=== PATIENT | male | born 1965 | race Caucasian/White ===

== ENCOUNTER 2022-01-21 08:03 | Outpatient (CLI) | payer OTHER, SELFPAY ==
--- NOTE | 2022-01-21 08:13 | MRI_ITS ---
STUDY: MRI RIGHT KNEE REASON FOR EXAM: Male, 56 years old. RT KNEE PAIN, MEDIAL PAIN TECHNIQUE: Standardized fat and water weighted pulse sequences were obtained in all 3 orthogonal planes. COMPARISON: None. FINDINGS: Small to moderate-sized horizontal and oblique undersurface tears are present at the periphery and middle one third aspect of the posterior horn of the medial meniscus. Normal body and anterior horn. There is diffuse, greater than 50% thickness articular cartilage loss of the medial femorotibial compartment. There is mild osteoarthritic spur formation of the medial knee compartment. Small benign intraosseous cyst noted in the midline of the distal femoral metaphysis. Normal medial collateral ligamentous complex (MCL). Normal distal semimembranosus, gracilis and semitendinosus tendons. Normal lateral meniscus. Normal hyaline cartilage of the lateral femorotibial compartment. Normal lateral femoral condyle and tibial plateau. Normal proximal tibiofibular articulation. Normal lateral collateral (fibular) ligament. Normal popliteus tendon. Normal biceps femoris tendon. Normal anterior cruciate ligament (ACL). Normal posterior cruciate ligament (PCL). Normal congruent patellofemoral articulation. There is diffuse, greater than 50% thickness articular cartilage loss of the patellofemoral compartment. Mild cortical spurring in the patellofemoral compartment. Normal medial and lateral patellar retinaculum. Normal quadriceps tendon. Normal patellar tendon. Normal Hoffa''s fat pad. Small joint effusion noted. The soft tissues are unremarkable. The otherwise visualized osseous structures are unremarkable. MRI/Lower Ext Joint Only (Routine) IMPRESSION: 1. Small to moderate-sized horizontal and oblique undersurface tears are present at the periphery and middle one third aspect of the posterior horn of the medial meniscus. Normal body and anterior horn. Electronically Signed: Scar Pepper MD at 10:47 EST Reading Location ID and State: [facility] / [place] , Service support ,
--- NOTE | 2022-01-21 08:47 | RAD_ITS ---
STUDY: X-RAY - ORBITS REASON FOR EXAM: Male, 56 years old. HX OF METAL - PRE MRI TECHNIQUE: 2 view(s) of the orbits were obtained. COMPARISON: None. FINDINGS: Normal bilateral orbits without a metallic orbital foreign body. Normal visualized facial bones. Normal paranasal sinuses. The soft tissue structures are unremarkable. RAD/Orbits for Foreign Body IMPRESSION: No demonstrated metallic orbital foreign body. The patient is cleared for an MRI examination. Electronically Signed: Scar Pepper MD at 9:21 EST ,
== END 2022-01-21 23:59 | disposition home or self-care (01) ==
LOC: MRI 08:07
PROVIDERS: PCP Family Medicine; Referring Provider Orthopaedic Surgery; Visit Provider Orthopaedic Surgery
DX: M25.561 Pain in right knee (principal); M17.11 Unilateral primary osteoarthritis, right knee
CPT/HCPCS: 70030; 73721

== ENCOUNTER 2022-02-26 09:04 | Day surgery (SDC) | payer OTHER, SELFPAY ==
--- NOTE | 2022-02-25 11:58 | EKG12_ITS ---
Test Reason : PREOP Blood Pressure : / mmHG Vent. Rate : 065 BPM Atrial Rate : 065 BPM P-R Int : 172 ms QRS Dur : 108 ms QT Int : 408 ms P-R-T Axes : 037 052 040 degrees QTc Int : 424 ms Normal sinus rhythm Normal ECG Confirmed by MIKAYLA DEAN, TUAN ([id number]), newspaper copy editor ORQUIDEA PERSON ([id number]) on 02/26/2022 11:24:55 AM Referred By: Mj Dhaliwal Confirmed By:TUAN DEGROOT MD
[2022-02-25 16:16] LABS: Absolute Neutrophil Count 4.8 X10^3/uL (2.0-7.7); Basophil# 0.05 X10^3/uL; Basophil% 0.6 % (0-1); Eosinophil# 0.25 X10^3/uL; Eosinophils% 3.1 % (0-5); Hematocrit 45.8 % (40-54); Hemoglobin 15.8 g/dL (13.0-16.5); Lymphocyte % 27.3 % (19-41); Mean Corp Hgb Conc 34.5 g/dL (32-36); Mean Corpuscular Hgb 29.9 pg (27.0-32.0); Mean Corpuscular Volume 86.6 fL (80-94); Mean Platelet Vol. 8.7 fl (6.2-12.0); Monocyte# 0.78 X10^3/uL; Monocyte% 9.7 % (0-10); NRBC Flagged by Analyzer 0 % (0-5); Neutrophil # 4.76 X10^3/uL (2.7-7.7); Neutrophil % 58.9 % (47-70); Platelet Count 250 K/mm3 (150-450); RBC Distribution Width CV 12.9 % (11.6-14.6); RBC Distribution Width SD 40.5 fl (35.1-43.9); Red Blood Count 5.29 M/mm3 (4.6-6.2); White Blood Count 8.1 K/mm3 (4.4-11.0)
[2022-02-25 16:36] LABS: Anion Gap 4 (5-15); BUN 14 mg/dL (7-18); BUN/Creat Ratio 14.3 RATIO (10-20); Calcium,Total 8.4 mg/dL (8.5-10.1); Chloride 106 mmol/L (98-107); Creatinine, Serum 0.98 mg/dL (0.70-1.30); EST Glomerular Filtration Rate 85 mL/min (>60); Est Glom Filt Rate - Afr Amer 102 mL/min (>60); Glucose 97 mg/dL (74-106); Potassium 3.8 mmol/L (3.5-5.1); Sodium Level 139 mmol/L (136-145)
[2022-02-26] VITALS (8 sets, daily range): BP systolic 106–140; BP diastolic 76–98; PULSE 50–57; RESP 16; TEMP 36.3–37.1; O2SAT 95–99
[2022-02-26] MEDS: Lactated Ringers 1,000 ML 15 ML IV ×2 (10:10→12:35)
[2022-02-26] MEDS: Cefazolin 2 GM in 0.9% Normal Saline 100 ML IV (10:30)
[2022-02-26] MEDS: Lidocaine 1% /Epi 1:100 (20ml) 20 ML Vial (10:53)
[2022-02-26] MEDS: Epinephrine (1 mg/ml) 1 MG/ML VIAL (10:53)
--- NOTE | 2022-02-26 11:53 | OP.PCM_ITS ---
Report of Operation Date of Procedure: 02/26/22 Pre-Operative Diagnosis: Internal derangement right knee Post-Operative Diagnosis: MMT, Grade 3 chondromalacia PF joint, Grade 3 and 4 chondromalacia MFC Surgery/Procedure Performed:: Diagnostic and operative arthroscopy with partial medial meniscectomy and chondroplasty of the PFJ and MFC Description of Surgical Findings:: Report of Operation Date of Procedure: 02/26/2022 Preoperative Diagnosis: Right knee, internal derangement Postoperative Diagnosis: Right knee, MMT, Grade 3 chondromalacia patellofemoral joint, Grade 3 and 4 chondromalacia medial femoral condyle Operation: Diagnostic and operative arthroscopy of the right knee with arthroscopic Surgeon: Dr Mj Dhaliwal DO Anesthesia: general Anesthesiologist: Parish Caputo M.D. Description of Procedure: With appropriate informed consent, the patient was taken to the operative suite. After induction of general and regional anesthesia and administration of the preoperative antibiotics, the well leg was fitted with MIGUEL A and SCDs and well padded. The right knee was placed into the arthroscopy leg jackson, prepped and draped sterilely. The standard arthroscopy portals were pre-injected with 0.5% Marcaine with epinephrine. A lateral portal was established. The diagnostic arthroscopy was begun. The patellofemoral joint revealed diffuse grade 3 chondromalacia of the patella and the trochlea. The medial compartment was entered and the medial portal was established. A probe was utilized to probe the medial meniscus. There was a macerated posterior horn medial meniscus tear and grade 3 and 4 chondromalacia of the inner part of the medial femoral condyle. ACL and PCL were probed and intact. The lateral compartment was entered. There was no pathology. Subsequently, a partial [ medial ] meniscectomy was performed using a combination of straight and angled basket punches. The meniscotome was then utilized to remove the fragments of cartilage and then to smooth the remainder of the meniscus to a firm and stable rim. A shaver was used to perform a chondroplasty on the [ PFJ and MFC ] to smooth the roughened surface cartilage and remove any delaminated cartilage. Thereafter, the arthroscopy instruments and fluid were removed. The portals were closed with interrupted sutures of 4-0 nylon followed by application of a sterile well-padded dressing and LUIS wrap. The patient was extubated and transferred to the PACU in stable and satisfactory condition. Mj Dhaliwal DO Surgeon: Mj Dhaliwal it business process architect: None Type of Anesthesia: General Anesthesiologist: Parish Caputo Admcharanjit VTE Documentation VTE Present on Admission: No VTE Mechan Device Prophylaxis: SCD's VTE Pharm Prophylaxis ordered?: No Reason prophylaxis not ordered:: Treatment Not Indicated
[2022-02-26] MEDS: HYDROcodone Bitartrate/Apap 5/325 Tablet PO (13:29)
== END 2022-02-26 23:59 | disposition home or self-care (01) ==
LOC: SDC 09:05 → AC 09:05
PROVIDERS: PCP Family Medicine; Referring Provider Orthopaedic Surgery; Visit Provider Orthopaedic Surgery
PROC: (CPT 29870; principal; 2022-02-26 10:10)
DX: S83.241A Other tear of medial meniscus, current injury, right knee, initial encounter (principal); M23.91 Unspecified internal derangement of right knee; M22.41 Chondromalacia patellae, right knee; X58.XXXA Exposure to other specified factors, initial encounter
CPT/HCPCS: 29881; 01400; 36415; 80048; 85025; 87426; 93005; C9803; J7120; J2405

== ENCOUNTER → 2022-07-30 | Outpatient (CLI) | payer OTHER, SELFPAY ==
--- NOTE | 2022-07-30 11:19 | MRI_ITS ---
STUDY: MRI RIGHT KNEE REASON FOR EXAM: Right medial knee pain for 16 months, surgery 02/26/2022. TECHNIQUE: Standardized fat and water weighted pulse sequences were obtained in all 3 orthogonal planes. COMPARISON: MRI images 01/21/2022. FINDINGS: There is a partial medial meniscectomy. There is interval development of a complex tear of the body of the medial meniscus, separate from the partial meniscectomy site (proton-density coronal images 16-18). There is mild peripheral subluxation of the medial meniscus. There is arthrosis of the medial femorotibial compartment with chondral thinning of the medial femoral condyle (T2 sagittal image 21). There is interval development of subchondral bone edema of the medial femoral condyle (T2 coronal images 18-22), a stress phenomenon. Normal medial collateral ligamentous complex (MCL). Normal distal semimembranosus, gracilis and semitendinosus tendons. Normal lateral meniscus. Normal hyaline cartilage of the lateral femorotibial compartment. Normal lateral femoral condyle and tibial plateau. Normal proximal tibiofibular articulation. Normal lateral collateral (fibular) ligament. Normal popliteus tendon. Normal biceps femoris tendon. Normal anterior cruciate ligament (ACL). Normal posterior cruciate ligament (PCL). Normal congruent patellofemoral articulation. There is arthrosis of the patellofemoral compartment with chondral thinning (T2 sagittal image 14). Normal medial and lateral patellar retinaculum. Normal visualized quadriceps tendon. There is mild distal patellar tendinosis (T2 sagittal images 11, 12). There is mild postoperative scarring in Hoffa''s fat pad. There is a small joint effusion. There is a thin medial patellar plica. There is mild prepatellar bursitis (T2 sagittal images 12-15). There is an enchondroma in the posterior aspect of the distal femoral metaphysis (T2 sagittal image 15) unchanged since the prior study measuring 1.6 cm in length. MRI/Lower Ext Joint Only (Routine) IMPRESSION: Partial medial meniscectomy with recurrent medial meniscal tear. Subchondral bone edema of the medial femoral condyle, a stress phenomenon. Arthrosis of the medial femorotibial patellofemoral compartments. Mild distal quadriceps tendinosis. Small joint effusion. Mild prepatellar bursitis. Small enchondroma in the distal femur. Electronically Signed: Sameer Tee MD at 12:35 EDT ,
== END | disposition home or self-care (01) ==
PROVIDERS: PCP Family Medicine; Referring Provider Orthopaedic Surgery; Visit Provider Orthopaedic Surgery
DX: M17.11 Unilateral primary osteoarthritis, right knee (principal); S83.241D Other tear of medial meniscus, current injury, right knee, subsequent encounter
CPT/HCPCS: 73721

== ENCOUNTER → 2022-11-03 | Outpatient (CLI) | payer OTHER, SELFPAY ==
--- NOTE | 2022-11-03 16:23 | CT_ITS ---
INDICATION: PRE OP EXAMINATION: CT BONE - CT Lower Extremity W/O Contrast Injection TECHNIQUE: Preoperative noncontrast [facility] protocol exam for surgical planning, with multiplanar images of the right knee hip and ankle. IV Contrast dosage and agent: None. COMPARISON: MRI right knee July 30, 2022. FINDINGS: SOFT TISSUES: Mild anterior thigh and knee subcutaneous soft tissue edema. No focal fluid collection or subcutaneous emphysema. Unremarkable muscular appearance. Small to moderate knee joint effusion without significant change from prior MRI. No radiopaque foreign body. BONES/JOINTS: No acute fracture or subluxation. Normal alignment. Prior left hip arthropathy. Mild right hip joint space narrowing and osteophyte formation. Knee tricompartment osteophyte formation with medial and patellofemoral compartment space narrowing. Mild tibiotalar osteophyte formation without gross effusion. No aggressive osteoblastic or destructive osseous lesion. . CT/Extremity Lower without Contra IMPRESSION: Osteoarthritis of right hip, knee, and ankle with persistent right knee joint effusion. Mild anterior thigh and knee subcutaneous soft tissue edema. Electronically Signed: Horacio Hsu MD at 7:10 EST Reading Location ID and State: [facility] / [place] Tel , Service support ,
== END | disposition home or self-care (01) ==
LOC: CT 16:20
PROVIDERS: PCP Family Medicine; Referring Provider Specialist; Visit Provider Specialist
DX: M21.161 Varus deformity, not elsewhere classified, right knee (principal); M17.11 Unilateral primary osteoarthritis, right knee; M16.11 Unilateral primary osteoarthritis, right hip; M25.471 Effusion, right ankle
CPT/HCPCS: 73700

== ENCOUNTER 2022-11-10 07:35 | Day surgery (SDC) | payer OTHER, SELFPAY ==
--- NOTE | 2022-10-22 19:20 | HP.PCM_ITS ---
History and Physical History and Physical [facility] Patient Name: Lit Nicholson : 1965 From:? SAMANTHA KITCHEN PA-C? DATE OF SURGERY:? 11/10/2022 SCHEDULED PROCEDURE:? Right partial knee replacement HISTORY OF PRESENT ILLNESS: Preoperative history and physical exam was performed on October 22, 2022.? This is a 57-year-old male who is been having ongoing pain for over one year.? Patient underwent a right knee arthroscopy with a partial medial meniscectomy and chondroplasty of the patellofemoral joint and medial femoral condyle.? Procedure was done by Dr. Mj Dhaliwal on February 26, 2022.? Patient has continued to have pain.? Pain can reach as high as an 8/10 with activity.? Pain is increased with going up and down stairs, walking, and sitting.? He does have start up pain.? Pain is primarily located over the medial aspect of the knee.? He does not waken him at night.? His pain is been constant, dull, sharp.? He has tried previous corticosteroid injection, physical therapy with no relief in symptoms.? After failing conservative measures and discussing treatment options with Dr. Francisco Webster, the patient would like to proceed with a right partial knee replacement.? Patient has no listed medical problems.? We are obtaining surgical clearance from the primary care physician Dr. Rivera.? Patient denies history of DVT or pulmonary embolism.? No recent chest pain, shortness of breath, fevers chills or recent infections. REVIEW OF SYSTEMS: Review Of Systems: Constitutional: Denies anorexia, change in appetite, fever, difficulty sleeping, weight change. Cardiovasular: Denies chest pain, heart murmur, irregular heartbeat and peripheral vascular disease. Respiratory: Denies asthma, cough, pneumonia, sleep apnea, shortness of breath, tuberculosis and wheezing. Gastrointestinal: Denies constipation, diarrhea, heartburn, nausea, rectal itching, bloody stools and vomiting. Genitourinary: Denies incontinence. Musculoskeletal: Denies leg swelling, pain, trouble walking and weakness. Skin: Denies Raynaud's, history of shingles and tattoo. Neurological: Denies ambulatory dysfunction, dizziness, numbness/tingling and tremor. Psychiatric: Denies anxiety, depression, insomnia, mental illness and stress. Hematologic/Lymphatic: Denies anemia, bleeding/bruising tendency and past transfusion. Reviewed, no changes. PAST MEDICAL HISTORY: Advance Care Plan: No Advance Directives Effective Date: 06/14/2017 Past Medical History: Medical Problems: None Accidents: Fracture - (1979) RT COLLARBONE Surgical Hx: Appendectomy, Cervical Fusion Hip Replacement Lt - (10/2020) RT Knee, Arthroscopic Medial Meniscectomy, Chondroplasty MFC & PFJ - (02/26/2022) Dr Sacha Dhaliwal @ [facility] Anesthesia Complications: None Assistive Devices: None Reviewed, no changes. SOCIAL HISTORY: Social History: Marital: .Occupation: [employer].Work Status: Currently Working.Hand Dominance: Left-handed. Personal Habits:? Cigarette Use: Never Smoked Cigarettes.Smokeless Tobacco: Never Used Smokeless Tobacco.E-Cigarette Use: Never used.Alcohol: Has consumed alcohol in the past.Drug Use: Denies Use.Enjoy Exercising: Exercises 1-3 X/Week. Reviewed, no changes. VITALS: Ht: 70 Wt: 213lb Wt k.617 BMI: 30.6 BP: 130/84 Pulse: 73 Resp: 18 T: 97.8 T: 36.6C Pain Level: 4 O2SatR: 99 ALLERGIES: Penicillin - Hives? MEDICATIONS: Oxycodone HCL 5 mg 1-2 tab by mouth every 4 hours, Meloxicam 7.5 mg 1 by mouth twice a day, Zofran 4 mg 1-2 by mouth every 8 as needed nausea, Famotidine 20 mg 1 by mouth every day, Tramadol HCL 50 mg 1 by mouth every 6 hours as needed pain, Tylenol Extra Strength 500 mg 2 by mouth every 8 hours, Aspirin Adult Low Dose 81 mg by mouth 1 a day, Calcium 500/Vitamin D 500-3.125 MG-mcg PRE-OP EXAM:? General appearance:NORMAL? ? ? Other: Eyes: Conjunctivae and lids: NORMAL? Pupils: ERR Ears, Nose, Mouth, and Throat: NORMAL? Other: Inspection of lips, teeth and gums: NORMAL? ?Other: Neck: Examination of neck: no masses noted. Respiratory: Assessment of respiratory effort: NORMAL? ?Other: ?Auscultation of lungs: clear to auscultation no wheezes, rhonchi or rales. Cardiovascular:? Auscultation of heart: regular rate and rhythm, no murmurs, gallops or rubs. PHYSICAL EXAMINATION: Patient does walk with a mild antalgic gait.? Previous right knee incisions are well-healed without erythema.? Patient has tenderness to palpation along the medial joint line.? Patient does have a large effusion.? Range of motion: 0 extension to 120 flexion.? Patient has medial collateral pseudo-laxity.? Firm endpoint on anterior/posterior drawer exam.? Sensation intact to light touch. IMAGING STUDIES: Previous x-rays and MRI reveal mild to moderate varus alignment with medial joint space narrowing.? However the MRI shows complete loss of distal femoral cartilage in the medial compartment with subchondral bony edema.? There is severe chondromalacia in the medial tibia.? Patient also has incidental enchondroma.? Lateral and patellofemoral compartments appear to be appropriately maintained. IMPRESSION: 1.? Severe right knee medial compartment osteoarthritis PLAN: Dr. Francisco Webster did discuss and review with the patient all treatment options including surgical versus nonsurgical options.? Patient does wish to proceed with the above-stated procedure.? Potential risks, benefits, and complications of the procedure were discussed in detail including but not limited to , infection, nerve and blood vessel damage, persistent pain, numbness, tingling, paresthesias, blood clot, pulmonary embolism, and requirement for possible further surgery.? The patient expressed full understanding and has no further questions for the doctor.? Patient does agree to proceed with the above-stated procedure and has signed the surgery consent form. We discussed the current risks associated with COVID 19.? This does include the risk of exposure while in the hospital.? Patient was reassured local hospitals have low infection rates and are taking all necessary precautions to avoid exposure to patients.? In addition, we discussed strategies that can be used to help limit exposure including those that limit the patient's time in the hospital.? Also using strategies to limit the patient's need for continued inpatient services after being discharged from the hospital.? Patient was notified that we will need to comply with any screening or testing the hospital wishes to perform or that surgery may be delayed for any positive results. This dictation was created using voice recognition software. Phonetic and/or grammatical errors may exist. ___? I have re-examined the patient.? There are no clinical changes since date of exam. ___? See progress notes for changes. ___? Dictated on admission Date: ? ? ?Time: Signature:
--- NOTE | 2022-11-03 16:18 | EKG12_ITS ---
Test Reason : PREOP Blood Pressure : / mmHG Vent. Rate : 062 BPM Atrial Rate : 062 BPM P-R Int : 172 ms QRS Dur : 098 ms QT Int : 402 ms P-R-T Axes : 058 014 058 degrees QTc Int : 408 ms Normal sinus rhythm Normal ECG Confirmed by MIKAYLA DEAN, TUAN ([id number]), desk editor AMBROSE HIGH ([id number]) on 11/04/2022 11:23:13 AM Referred By: Francisco Webster Confirmed By:TUAN DEGROOT MD
[2022-11-03 17:16] LABS: Absolute Neutrophil Count 3.9 X10^3/uL (2.0-7.7); Basophil# 0.04 X10^3/uL; Basophil% 0.5 % (0-1); Eosinophils% 6.5 % (0-5); Hematocrit 44.7 % (40-54); Hemoglobin 15.3 g/dL (13.0-16.5); Lymphocyte % 32.5 % (19-41); Mean Corp Hgb Conc 34.2 g/dL (32-36); Mean Corpuscular Hgb 29.4 pg (27.0-32.0); Mean Platelet Vol. 8.8 fl (6.2-12.0); Monocyte# 0.77 X10^3/uL; NRBC Flagged by Analyzer 0 % (0-5); Neutrophil # 3.85 X10^3/uL (2.7-7.7); Platelet Count 258 K/mm3 (150-450); RBC Distribution Width CV 12.2 % (11.6-14.6); RBC Distribution Width SD 38.1 fl (35.1-43.9); White Blood Count 7.7 K/mm3 (4.4-11.0)
[2022-11-03 17:43] LABS: Magnesium 2.2 mg/dL (1.6-2.6)
[2022-11-03 17:45] LABS: Albumin, Serum 3.7 g/dL (3.2-5.0); Anion Gap 3 (5-15); BUN 13 mg/dL (7-18); BUN/Creat Ratio 15.6 RATIO (10-20); Calcium,Total 8.7 mg/dL (8.5-10.1); Chloride 106 mmol/L (98-107); Creatinine, Serum 0.83 mg/dL (0.70-1.30); EST Glomerular Filtration Rate 101 mL/min (>60); Est Glom Filt Rate - Afr Amer 123 mL/min (>60); Glucose 89 mg/dL (74-106); Potassium 3.9 mmol/L (3.5-5.1); Sodium Level 139 mmol/L (136-145)
[2022-11-03 17:55] LABS: Hemoglobin A1c 5.3 % (3.8-5.6)
[2022-11-10] VITALS (12 sets, daily range): BP systolic 114–130; BP diastolic 73–87; PULSE 57–79; RESP 16–18; TEMP 36.1–36.4; O2SAT 95–100; BMI 30.7
[2022-11-10 09:00] LABS: Bedside Glucose 68 mg/dL (74-106)
[2022-11-10] MEDS: Lactated Ringers 1,000 ML 999 ML IV ×2 (09:12→12:00)
[2022-11-10] MEDS: Acetaminophen 500 MG Tablet 1000 MG PO (09:13)
[2022-11-10] MEDS: Gabapentin 600 MG Tablet PO (09:13)
[2022-11-10] MEDS: Magnesium 1 GM over 15 mins IV (09:13)
[2022-11-10] MEDS: Celecoxib 200 MG Capsule 400 MG PO (09:13)
[2022-11-10] MEDS: Cefazolin 2 GM in 0.9% Normal Saline 100 ML IV (09:56)
[2022-11-10] MEDS: dexAMETHasone 10 MG/ML Vial IV (10:00)
--- NOTE | 2022-11-10 10:00 | KNEE_PTH ---
PATIENT: BING MURILLO LOC: [facility] [place] U#:[id number] AGE/SX: 57/M ROOM: RE11/10/[address]: Dr. Francisco Webster MD : 1965 BED: DIS: 11/10/2022 SPEC #: [id number] RECD: 11/10/22 14:08 STATUS: CARIDAD REQ #: [id number] GIO: 11/10/22 10:[address]: Francisco Webster DEPT: SURGICAL PATHOLOGY RECD BY: Florinda Vaughn ENTERED: 11/11/22 12:31 SP TYPE: TOTAL KNEE OTHR DR: Dr. Korey Rivera MD Tissues: Knee, NOS Procedures: Decalcification bone/plaque Surgery Specimen Level IV HEADER OPERATION: DUSTYS, robotic assisted partial converted to total knee arthroscopy PRE-OP DIAGNOSIS: Severe right knee medial compartment osteoarthritis TISSUE SUBMITTED: Bone and soft tissue of right knee MICROSCOPIC DIAGNOSIS Bone and soft tissue, right knee, total knee replacement/resection: Pieces of bone with degenerative osteoarthritic changes. Fibroadipose tissue, fibroconnective tissue and reactive synovial tissue. MARILEE:dion 11/18/2022 MICROSCOPIC DESCRIPTION Slides are reviewed. GROSS DESCRIPTION Received is one container designated bone and soft tissue right knee. The specimen consists of multiple fragments of santoyo-yellow bone measuring in aggregate 11 x 12 x 3 cm. Also present is a piece of soft tissue attached to one of the pieces of bone measuring 3.5 x 1.5 x 1 cm. A number of bony fragments contain articular surfaces consistent with tibial plateau and femoral condyle and displaying prominent osteophyte formation and bone erosion. Logistics Analytics Manager sections are submitted in two cassettes as follows: 1 - soft tissue, 2 - bone after decalcification. / MARILEE:dion 11/11/2022 :5 [facility]: [id number], [id number]
[2022-11-10] MEDS: TXA 1000mg in NS100 100ml (IVPB at Incision) 660 MG IV (10:10)
[2022-11-10] MEDS: TXA 1000mg in NS100 100ml (IVPB at Closure) 660 MG IV (11:03)
--- NOTE | 2022-11-10 11:29 | OP.PCM_ITS ---
Report of Operation Date of Procedure: 11/10/22 Pre-Operative Diagnosis: Right knee primary osteoarthritis Post-Operative Diagnosis: Right knee primary osteoarthritis Surgery/Procedure Performed:: Right minimally invasive robotic total knee replacement Description of Surgical Findings:: Stable knee with good patella tracking. Patient had severe stage IV patellofemoral arthrosis as well as a full-thickness cartilage lesion in the lateral compartment roughly 1 cm in diameter. Based on these findings do not feel it was appropriate to proceed with a partial knee replacement as initially planned. A total knee replacement as a backup option was discussed with the patient in the office should be fine these findings. Unfortunately did not get translated to the consent. Once I noted the intraoperative findings I broke scrub and discussed the findings with his . Expressed my concern for early failure of partial knee replacement and recommended total knee replacement. Verbal consent was obtained at this time. Surgeon: Francisco Webster building construction professor: [place] Type of Anesthesia: Spinal Anesthesiologist: Angus Fox Special Medications: 2 g Ancef, 1 g TXA at incision, 1 g TXA closure, 10 mg Decadron, joint cocktail (5 mg Duramorph, 30 mL of 0.5% Ropivicaine, 1000 units of epinephrine, 30 mg of Toradol) Specimen's removed: Bony cuts Estimated Blood Loss (mL): 75 Fluids Replaced: 1200 crystalloid Description of Procedure: Implants used: 1. Joseph size 6 triathlon cruciate retaining distal femoral press-fit component 2. [place] size 7 press-fit tritanium tibial baseplate 3. [place] X3 9 mm CS polyethylene 4. [place] X3 38 mm asymmetric patella Brief history operative indications: 57-year-old m with history of right knee osteoarthritis with radiographic findings with loss of joint space, osteophyte formation and subchondral sclerosis. Failed conservative measures as mentioned in the H&P. Discussion of total knee arthroplasty as well as risk and benefits were discussed the patient including but not limited to blood loss, DVTs, PEs, neurovascular damage, general risk of anesthesia including loss of life, and stiffness or instability were discussed with patient. Patient demonstrated understanding and was able to sign informed consent. Procedure: On the date of procedure patient's right lower extremity was marked in the preoperative area. The patient was then taken back to the operating room where the patient was placed on the table in the supine position. All bony prominences were identified a well-padded. Anesthesia assumed control of the C-spine and airway and remained controlled throughout the remainder of the procedure. A tourniquet was placed on the right upper thigh and the leg was prepped in a sterile fashion. The surgeon then scrubbed at this time .Upon reentering the room right lower extremity was draped in a standard orthopedic fashion. A timeout was then called and everyone agreed upon the side, the site, the procedure to be performed, patient's identity and antibiotics given. Esmarch bandage was used to exsanguinate the extremity and the tourniquet was placed up to 250 mmHg with the knee in flexion. A midline skin incision was made and sharp dissection was taken down through skin subcutaneous tissue and fat. The standard medial parapatellar incision was made and the patella was subluxed laterally. An Appropriate deep MCL release was done and the fat pad was resected. Our attention was then directed to the patella. The patella was everted and a flat resection was made. The knee was then flexed up in 2 femoral pins were placed inside the incision and 2 tibial pins were placed outside the incision in the medial tibia bicortically. Once this was completed the 2 checkpoints in the femur and tibia were placed. Knee was then flexed up and the bony landmarks were registered. Once this was completed knee was taken through range of motion and manually stressed allowing us to a plan for an appropriate tibial cut. The robotic arm was brought into the field sterilely and checkpoint and saw were registered. Based on the patient's deformity the tibial cut was made in 3 degrees of varus. At this time the tensioner was then placed in the joint and ligament tension was checked at 90 degrees and full extension. Based on the patient's ligamentous tension appropriate adjustments were made to the operative plan and ligament releases were done. Once we were happy with our operative plan with balanced flexion and extension gaps our attention was directed to the femur. The robot was brought into the field sterilely and registered. Posterior condylar cuts, anterior chamfer cuts and anterior cuts were appropriately made for a size 6 femur. When these were completed the saws were switched out in the distal femoral and posterior chamfer cuts were made. Protecting the soft tissue throughout this time. A size 7 tibial base plate was selected. the knee was flexed to 90 degrees and the soft tissues and posterior osteophytes were removed from the joint. 40 cc of the periarticular injection was injected into the posterior medial corner of the joint. The appropriate trials were then placed on the femur and tibia. A trial polyethylene was trialed to ensure proper balancing and stability of the knee. The appropriate tibial internal rotation was then marked with a bovie. Our attention was then directed to the patella. The lug holes were drilled and the patella trial was placed. Patellar tracking was checked and deemed appropriate. Once we were happy lug holes were drilled for the femur and trial components were removed. the tibia was subluxed and pinned into place and the keel was punched and drilled appropriately. Final components were verified and opened, and cement was mixed in a vacuum. [employer] Simplex cement was used. The wound was copiously irrigated with normal saline. When the cement was ready the components were impacted into place starting with the tibia, femur the femur did not have an appropriate fit. At this time cement was mixed and the femur was cemented into place. And finally impacting the patella. The trial poly component was placed and the knee was placed in full extension. All excess cement was removed in the process. Once the cement had cured the tracking, alignment and balance were verified and a size 9 mm CS polyethylene component was placed. Once the final components were placed a 3-minute dilute Betadine lavage was performed followed by an Irrisept lavage was performed and the wound was copiously irrigated with normal saline solution and the periarticular injection was given. The wound was closed in a layer deal fashion using #1 vicryl interrupted sutures for the arthrotomy, 2-0 interrupted Vicryl suture for the subcuticular layer and april for final skin closure. A sterile compressive dressing was then placed. The patient was then awakened from anesthesia, transferred to the [facility] and transferred to the PACU for recovery. Post op plan DVT ppx: ASA 81mg BID, thigh high compression stockings Follow up: in office in 2 weeks for wound check PT: to start POD #0 at hospital, outpatient PT should be arranged. My physician talent assistant was a vital part of this case. He was important in appropriate retraction during the case, and protection of soft tissues during bony cuts. His intimate knowledge of the case and my steps aided in safe and expedient completion of the procedure as well as appropriate position of the leg during the case. He was also vital in assisting with closure under my direct supervision. Due to the complexity of this case robotic arm was used to assist in the surgery to improve accuracy and clinical outcomes. Complications No intraoperative complications Admit VTE Documentation VTE Present on Admission: No VTE Mechan Device Prophylaxis: SCD's and Thigh High MIGUEL A Hose VTE Pharm Prophylaxis ordered?: Yes
--- NOTE | 2022-11-10 12:45 | RAD_ITS ---
STUDY: X-RAY - RIGHT KNEE REASON FOR EXAM: Male, 57 years old. Placement of total knee arthroplasty. TECHNIQUE: 2 view(s) of the knee. COMPARISON: None. FINDINGS: There is a 3 component total knee arthroplasty in anatomic position. There are expected post-operative findings. There are no complications. No other significant abnormality is identified. RAD/Knee 1 or 2 Views IMPRESSION: Total knee arthroplasty in anatomic alignment without complications. Electronically Signed: Ambrose Seay, at 13:05 EST ,
[2022-11-10] MEDS: Lactated Ringers 1,000 ML 125 ML IV (13:35)
[2022-11-10] MEDS: Cefazolin 1 GM/50 ML BAG IV (15:11)
[2022-11-10] MEDS: Tamsulosin HCl 0.4 MG Capsule PO (15:38)
[2022-11-10] MEDS: Ketorolac 30 MG/ML Syringe IV (17:15)
--- NOTE | 2022-11-10 17:57 | SUR.PHASEII ---
PATIENT VOIDED LARGE AMOUNT AND POST-VOID BLADDER SCAN OF 400 ML AFTER PERIOD OF ONLY VOIDING A SMALL AMOUNT WITH A POST-VOID RESIDUAL OF 919 ML. PATIENT REPORTS FEELING MUCH BETTER NO FURTHER BLADDER PRESSURE. VSS. ABLE TO AMBULATE USING WALKER w/o DIFFICULTY. INSTRUCTIONS REVIEWED IN DETAIL w/ PATIENT & , BOTH VERBALIZE UNDERSTANDING. USING INCENTIVE SPIROMETER APPROPRIATELY. USING ICE PACK.
== END 2022-11-10 18:07 | disposition home or self-care (01) ==
LOC: SDC 07:36 → AC 07:44
PROVIDERS: Anesthesiology; PCP Family Medicine; Referring Provider Specialist; Visit Provider Specialist
PROC: (CPT 27447; principal; 2022-11-10 09:30)
DX: M17.11 Unilateral primary osteoarthritis, right knee (principal); M94.261 Chondromalacia, right knee; Z79.1 Long term (current) use of non-steroidal anti-inflammatories (NSAID); Z79.899 Other long term (current) drug therapy
CPT/HCPCS: 27447; S2900; 64447; 01402; 36415; 73560; 80048; 82040; 82962; 83036; 83735; 85025; 87081; 88305; 88311; 93005; 97162; C1776; J7120; J2405; J3475